=== PATIENT | female | born 1960 | race Caucasian/White ===

== ENCOUNTER → 2020-04-23 | Outpatient (REF) | payer BC ==
[2020-04-23 18:54] LABS: CREATININE, URINE 16.6 MG/DL; MALB URINE SIEMENS < 5.0 MG/L; MAU/CREAT RATIO 30.1 MCG/MG (0.0-30.0)
== END ==
LOC: M LAB REF 17:17
PROVIDERS: ATTEND Internal Medicine Endocrinology, Diabetes & Metabolism
DX: E11.65 Type 2 diabetes mellitus with hyperglycemia (principal)

== ENCOUNTER → 2021-08-12 | Outpatient (REF) | payer BC | LOC: M SFHCRHEU 10:01 | PROVIDERS: ATTEND Internal Medicine Rheumatology | DX: Z53.20 Procedure and treatment not carried out because of patient's decision for unspecified reasons (principal) ==

== ENCOUNTER → 2022-08-02 | Outpatient (REF) | payer BC | LOC: M SFHCDERM 14:07 | PROVIDERS: ATTEND Nurse Practitioner Family | DX: R21 Rash and other nonspecific skin eruption (principal) ==

== ENCOUNTER → 2022-09-30 | Outpatient (CLI) | payer BC | LOC: M RAD 10:49 | PROVIDERS: ATTEND Surgery Vascular Surgery | DX: I87.2 Venous insufficiency (chronic) (peripheral) (principal); I83.813 Varicose veins of bilateral lower extremities with pain ==

== ENCOUNTER 2022-11-07 14:25 | Day surgery (SDC) | payer BC ==
[~2022-11-07] VITALS: Ht 154.9 cm; Wt 68.5 kg
[~2022-11-07 14:25] MED LIST: ALPH200C6 PO; ATEN50TA2 PO; ATOR40TA75 PO; CALC600C3 PO; CHOL50002 PO; CVS10CAP PO; FARX1TAB3 PO; FLUT50SP17 NARES; FOLI1TAB11 PO; FURO20TA2 PO; METF10004 PO; METH2.5T48 PO; OMEP40CA5 PO; TIRZ5PEN SC; TIZA2TA PO
[2022-11-07] MEDS ORDERED: INSULIN LISPRO (NovoLOG) PER UNIT SC PRN ×2 (15:15→17:40)
[2022-11-07] MEDS ORDERED: LR 1,000 ML IV SCH ×2 (15:15→17:40)
[2022-11-07 15:23] LABS: HEMATOCRIT 38.6 % (36.0-47.0); HEMOGLOBIN 12.5 g/dl (12.0-15.5); MEAN CORPUSCULAR HEMOGLOBIN 29.6 pg (27.0-33.0); MEAN CORPUSCULAR HGB CONC 32.4 g/dl (32.0-36.5); MEAN CORPUSCULAR VOLUME 91.3 fl (80.0-96.0); PLATELET COUNT, AUTOMATED 215 10^3/uL (150-450); RED BLOOD COUNT 4.23 10^6/uL (4.00-5.40); WHITE BLOOD COUNT 7.3 10^3/uL (4.0-10.0)
[2022-11-07] MEDS ORDERED: ceFAZolin SOD 2 GM in IV 1 EA IV ONE (15:30)
[2022-11-07 15:35] LABS: BLOOD UREA NITROGEN 21 MG/DL (9-23); CALCIUM LEVEL 9.1 MG/DL (8.3-10.6); CARBON DIOXIDE LEVEL 29 MMOL/L (20-31); CHLORIDE LEVEL 105 MMOL/L (98-107); CREATININE FOR GFR 0.76 MG/DL (0.55-1.30); GLOMERULAR FILTRATION RATE > 60.0 (>45); GLUCOSE, FASTING 86 MG/DL (74-106); POTASSIUM SERUM 4.2 MMOL/L (3.5-5.1); SODIUM LEVEL 140 MMOL/L (136-145)
[2022-11-07] MEDS ORDERED: LIDOCAINE 2% MDV 20ML VIAL As Ordered ONE (15:36)
[2022-11-07] MEDS ORDERED: SODIUM BICARBONATE 8.4% INJ 50MEQ 50ML VIAL As Ordered ONE (15:37)
[2022-11-07] MEDS ORDERED: METOCLOPRAMIDE INJ 10MG/2ML VIAL As Ordered ONE (16:18)
[2022-11-07] MEDS ORDERED: LIDOCAINE 2% 100MG/5ML SDV (FOR ANES.) As Ordered ONE (16:18)
[2022-11-07] MEDS ORDERED: ACETAMINOPHEN 1000MG 100ML IV BAG As Ordered ONE (16:18)
[2022-11-07] MEDS ORDERED: ONDANSETRON 4MG 2ML VIAL As Ordered ONE (16:18)
[2022-11-07] MEDS ORDERED: MIDAZOLAM INJ 2MG/2ML VIAL As Ordered ONE (16:18)
[2022-11-07] MEDS ORDERED: fentaNYL 100 MCG/2 ML INJECTION As Ordered ONE (16:18)
[2022-11-07] MEDS ORDERED: propofoL 200 MG/20 ML VIAL As Ordered ONE (16:18)
[2022-11-07] MEDS ORDERED: KETOROLAC 60MG 2ML VIAL As Ordered ONE (16:18)
[2022-11-07] MEDS ORDERED: PHENYLephrine 500MCG 5ML (100MCG/ML) SYRINGE As Ordered ONE ×2 (16:26→17:16)
[2022-11-07] MEDS ORDERED: fentaNYL 100 MCG/2 ML INJECTION IV PRN (17:40)
[2022-11-07] MEDS ORDERED: oxyCODONE 5MG TAB PO PRN (17:40)
[2022-11-07] MEDS ORDERED: ONDANSETRON 4MG 2ML VIAL IV PRN (17:40)
[2022-11-07 18:45] VITALS: BP 117/62
[2022-11-08] MEDS ORDERED: UNRESOLVED CLARIFICATION ENTRY XX SCH (00:01)
== END 2022-11-07 19:04 | disposition home or self-care (01) ==
LOC: M SDC 14:25
PROVIDERS: ATTEND Surgery Vascular Surgery
DX: I83.813 Varicose veins of bilateral lower extremities with pain (principal); D86.9 Sarcoidosis, unspecified; L40.9 Psoriasis, unspecified; R00.0 Tachycardia, unspecified; E11.9 Type 2 diabetes mellitus without complications; R94.31 Abnormal electrocardiogram [ECG] [EKG]; K21.9 Gastro-esophageal reflux disease without esophagitis; Z87.891 Personal history of nicotine dependence; Z91.041 Radiographic dye allergy status; Z88.0 Allergy status to penicillin; Z88.1 Allergy status to other antibiotic agents; Z79.899 Other long term (current) drug therapy; Z79.84 Long term (current) use of oral hypoglycemic drugs
CPT/HCPCS: 36415; 37765; 80048; 85027; 93005; J0131; J0690; J1100; J1885; J2250; J2370; J2405; J2765; J3010

== ENCOUNTER → 2024-08-05 | Outpatient (CLI) | payer BC ==
[~2024-08-05] MED LIST changes: -FLUT50SP17 NARES; +FLUTISP NARES
== END ==
LOC: M PLARAD 09:51
PROVIDERS: ATTEND Nurse Practitioner Family
DX: C84.A0 Cutaneous T-cell lymphoma, unspecified, unspecified site (principal)
CPT/HCPCS: 78816; A9552